=== PATIENT | male | born 1930 | race Caucasian/White ===

== ENCOUNTER 2017-06-01 19:42 | Inpatient (IN) | payer OTHER ==
[~2017-06-01] VITALS: Ht 182.9 cm; Wt 77.6 kg
[2017-06-01 19:47] VITALS: BP 132/75
[2017-06-01] MEDS ORDERED: ELIQUIS2.5 MG PO (20:05)
[2017-06-01] MEDS ORDERED: TOPROL XL25 MG PO (20:06)
[2017-06-01] MEDS ORDERED: LISINOPRIL20 MG PO (20:06)
[2017-06-01] MEDS ORDERED: ZANTAC 150MG T150 M1 PO (20:07)
[2017-06-01] MEDS ORDERED: PROSCAR 5MG TABL5 MG PO (20:07)
[2017-06-01] MEDS ORDERED: ATORVASTATIN CA40 MG PO (20:07)
[2017-06-01] MEDS ORDERED: HYDROCHLOROTH12.5 M1 PO (20:07)
[2017-06-01] MEDS ORDERED: OCUVITE ADULT1 EAC1 PO (20:08)
[2017-06-01] MEDS ORDERED: VITAMIN D3400 UNIT PO (20:09)
[2017-06-01] MEDS ORDERED: UNICOMPLEX M TA1 TA1 PO (20:09)
[2017-06-01] MEDS ORDERED: KLOR-CON 1010 MEQ PO (20:09)
[2017-06-01] MEDS ORDERED: NEURONTIN 300300 M1 (20:10)
[2017-06-01] MEDS ORDERED: MIRALAX17 GM PO (20:10)
[2017-06-01 20:37] LABS: HEMATOCRIT 40.2 % (42.0-52.0); HEMOGLOBIN 13.3 gm/dL (14.0-18.0); MCH 30.6 pg (26.0-34.0); MCV 92.8 fL (80.0-100.0); MPV 7.1 fl. (7.2-11.1); NUCLEATED RBCS 0 /100WBC; PLATELET COUNT* 274 thou/uL (150-400); RBC 4.33 mil/uL (4.50-6.00); RDW-CV 14.5 % (10.5-14.5); WBC 6.9 thou/uL (4.0-11.0)
[2017-06-01 20:46] LABS: CALCIUM 8.4 mg/dL (8.5-10.1); CREATININE 1.6 mg/dL (0.6-1.3); POTASSIUM 3.7 mmol/L (3.5-5.1)
[2017-06-01 20:48] LABS: APTT 28.7 Seconds (25.0-31.3); INR 1.2; PROTIME 11.8 Seconds (9.20-11.50)
[2017-06-01 21:05] LABS: ABSOLUTE LYMPHOCYTES 0.9 thou/uL (0.8-5.3); ABSOLUTE MONOCYTES 0.4 thou/uL (0.0-1.2); ABSOLUTE NEUTROPHILS 5.6 thou/uL (1.6-8.1); ALBUMIN 3.1 g/dL (3.4-5.0); PLATELET ESTIMATE ADEQUATE; TOTAL BILIRUBIN 0.8 mg/dL (<0.1-1.0); TOTAL PROTEIN 6.2 g/dL (6.4-8.2); TROPONIN-I LEVEL 0.07 ng/mL (<0.06)
[2017-06-01 22:09] LABS: BE 2.6 mmol/L (-2 to +3); HCO3 27.2 mmol/L (22.0-26.0); PCO2 41.9 mmHg (35.0-45.0)
[2017-06-01 22:12] LABS: PO2 56.7 mmHg (75.0-100.0)
[2017-06-01 23:00] VITALS: BP 112/67
[2017-06-01 23:33] VITALS: BP 113/61
[2017-06-02 03:59] VITALS: BP 87/56
--- NOTE | 2017-06-02 04:45 | NUR ---
PT WAS ADMITTED TO ROOM 206 DURING THIS SHIFT; VSS, A+OX4, AMBULATED TO BED USING HIS OWN WALKER; DID NOT REPORT ANY DIZZINESS. HE IS ABLE TO COMMUNICATE HIS NEEDS TO STAFF EFFECTIEVLY. HE HAS DENIED THE NEED FOR PAIN MEDICATION UP TO THIS TIME. CARDIOLOGY CONSULT ORDERED.
[2017-06-02 07:00] VITALS: BP 87/59
--- NOTE | 2017-06-02 08:00 | NUR ---
VSS, ASSUMED CARE IN THE AM, ASSESSMENT PERFORMED AND CHARTED, FALL PRECAUTIONS IN PLACE AND CALL LIGHT IN REACH, PT IS A&O4 AND UP WITH ONE TO BSC. PT IS ON 3L NC HE IS WEAK AND HIS GOAL IS TO IMPROVE BREATHING AND SIT UP IN CHAIR, PT IS TRACING AFIB ON THE MONITOR WITH RATE IN THE 90-120 WHEN GETTIN U, PT BPS ANR SOFT, AT THIS TIME I AM HOLDING BETA EVARISTO, WILL FOLLOW WITH PLAN OF CARE,
[2017-06-02 12:04] VITALS: BP 80/53
[2017-06-02 16:16] VITALS: BP 90/58
--- NOTE | 2017-06-02 18:05 | NUR ---
VSS, PT IS NOT PROGRESSING TOWARS GOAL, PT IS ON 3L NC AND UP TO BSC WITH ONE, IS INCONT AND IS TRACING AFIB ON THE MONITOR, PT BP'S ARE SOFT BUT DR HAS NO ORDERS, AND PT DENIES ANY COMPLAINTS, HOURLY ROUNDS COMPLETED,
[2017-06-02 20:48] VITALS: BP 97/60
[2017-06-03] VITALS: BP 104/48
[2017-06-03 04:00] VITALS: BP 116/67
[2017-06-03 04:58] LABS: HEMATOCRIT 41.3 % (42.0-52.0); HEMOGLOBIN 13.3 gm/dL (14.0-18.0); MCH 30.3 pg (26.0-34.0); MCHC 32.1 g/dL (28.0-37.0); MCV 94.3 fL (80.0-100.0); MPV 7.9 fl. (7.2-11.1); RBC 4.38 mil/uL (4.50-6.00); RDW-CV 14.4 % (10.5-14.5); WBC 7.8 thou/uL (4.0-11.0)
[2017-06-03 05:23] LABS: CALCIUM 8.4 mg/dL (8.5-10.1); CREATININE 1.6 mg/dL (0.6-1.3); POTASSIUM 4.8 mmol/L (3.5-5.1)
--- NOTE | 2017-06-03 07:50 | NUR ---
PT IS ABLE TO COMMUNICATE NEEDS TO STAFF EFFECTIVELY. HE HAS DENIED THE NEED FOR PAIN MEDICATION UP TO THIS TIME. HE IS TENTATIVELY SCHEDULED TO HAVE AN ULTRASOUND OF HIS CAROTIDS AND LOWER EXTRMETIES LATER TODAY.
[2017-06-03 08:00] VITALS: BP 100/56
--- NOTE | 2017-06-03 09:19 | CON ---
[address] [address] CONSULTATION Name: LUCIA COOK Room: [address] ADM IN .R.#: [id number] Admission: 06/01/17 Attend Phys: Shannen Rey Discharge: Date of : 30 Report #: [id number] THIS REPORT FOR: //name// CC: [facility] physician/PCP Calixto Tierney DATE OF SERVICE: 06/02/2017 HISTORY OF PRESENT ILLNESS: The patient is an 86-year-old single white male who I was asked to see in the hospital today complaining of being weak. Unfortunately, no old records are available. The patient primarily receives his care at [facility]. He has a long history of atrial fibrillation. He apparently has never been cardioverted. He has been followed by Dr. Kulkarni. He has had no history of bleeding problems. Recently, the patient complained of no appetite and fatigue. He has been lightheaded. Yesterday, he complained of some shortness of breath and edema. His daughter brought him to the hospital and he was admitted. He denies significant fever or cough. He denies history of myocardial infarction or chest pain. He denies any significant palpitations. He has had no vomiting or recurrent loose stools. PAST MEDICAL HISTORY: Otherwise significant for nose surgery, knee surgery, appendectomy, hypertension, hyperlipidemia, atrial fibrillation. MEDICATIONS: Consist of Eliquis, metoprolol, lisinopril/hydrochlorothiazide, Lipitor, potassium. ALLERGIES: He has no known drug allergies. FAMILY HISTORY: Negative for heart disease. SOCIAL HISTORY: He is , lives with a daughter in [place]. No smoking or alcohol abuse. REVIEW OF SYSTEMS: He has had no history of stroke, asthma, peptic ulcer disease, liver disease, kidney disease, cancer, chronic skin condition. PHYSICAL EXAMINATION: GENERAL: Revealed an elderly male sitting in a chair. He appeared in no acute distress. VITAL SIGNS: He had a blood pressure of 100/60, his pulse was 90. He was afebrile. HEENT: He was anicteric. Conjunctivae are pale. Mucous membranes appear dry. NECK: Veins nondistended. CHEST: Clear to auscultation. CARDIAC: Irregular rhythm, grade 3 holosystolic murmur at the apex. ABDOMEN: Soft, [place] [address] CONSULTATION Name: LUCIA COOK Room: [address]#: [id number] Admission: 06/01/17 Attend Phys: Shannen Rey Discharge: Date of : 30 Report #: [id number] EXTREMITIES: Had trace pedal edema. Dorsalis pedis pulse cannot be palpated. SKIN: Cool and dry. NEUROLOGIC: Nonfocal. LYMPH: No adenopathy. MUSCULOSKELETAL: No joint effusion. LABORATORY DATA: His ECG showed atrial fibrillation with a left bundle branch block. His workup in the Emergency Room yesterday, he had a CT scan of the head performed without contrast last night that showed no acute abnormality. His chest x-ray in the Emergency Room showed cardiomegaly, mild interstitial infiltrates, elevated left hemidiaphragm. His lab work, sodium 139, BUN 29, creatinine 1.6, glucose 171, alkaline phosphatase is 121. BNP 4171. TSH 1.7. White blood cell count 6.9, hemoglobin 13.3. IMPRESSION AND RECOMMENDATIONS: 1. Atrial fibrillation. Rate controlled with a beta maximiliano. I would continue anticoagulation with Eliquis. 2. Fatigue. Reason unclear. 3. Complaint of shortness of breath. Noted to have murmur and mitral regurgitation. Recommend echocardiogram. 4. Edema. Suspect venous insufficiency. 5. Hypertension. Blood pressure noted to be low. <ELECTRONICALLY SIGNED> By: Sarath Cavanaugh MD, [facility] 06/03/17 0919 [id number] [id number] Cavanaugh MD, FACC /nt
[2017-06-03 11:47] VITALS: BP 95/56
--- NOTE | 2017-06-03 13:04 | EKG ---
[place] [address] ELECTROCARDIOGRAM REPORT Name: LUCIA COOK Room: [address] ADM IN M.R.#: [id number] Admission: 06/01/17 Attend Phys: Shannen Rey Discharge: Date of : 30 Report #: [id number] THIS REPORT FOR: //name// [facility] ED Test Date: 2017-06-01 Test Time: 20:20:42 Pat Name: LUCIA COOK Department: Room: [facility] Gender: M Bank Compliance Officer: CHACHA Pace : 1930 Requested By: Alina Escalante Order Number: [id number] MD: Jay Urbina Measurements Intervals [place] Rate: 84 P: UT: QRS: -44 QRSD: 146 T: 120 QT: 450 QTc: 533 Interpretive Statements Atrial fibrillation Nonspecific 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
--- NOTE | 2017-06-03 14:43 | NUR ---
ASSUMED CARE OF PT AT 0730. PT SITTING UP AT THE EDGE OF BED WAITING FOR BREAKFAST. PT A&0X4. DENIES ANY PAIN OR SHORTNESS OF BREATH. PT TRACING AFIB WITH BBB ON THE CASE RESOURCE MANAGER. EDEMA NOTED TO BILATERAL LE'S. PT ON 2L NC SAT 92%. PT UP WITH 1 ASSIST WITH WALKER FROM HOME TO [facility]. PT TO HAVE BILATERAL LE US, ECHO AND US CAROTIDS TODAY. AM ASSESSMENT CHARTED. MEDICATIONS PER JUL. PT REPOSITIONS SELF IN BED WITH REMINDERS. HOURLY ROUNDING OBSERVED. BED IN LOW POSITION. CALL LIGHT WITHIN REACH. WILL CONTINUE PLAN OF CARE.
[2017-06-03 16:23] VITALS: BP 96/60
--- NOTE | 2017-06-03 17:14 | 2DMMODE ---
[place] [address] 2 D/M-MODE ECHOCARDIOGRAM Name: LUCIA COOK Room: [address] ADM IN [facility]#: [id number] Admission: 06/01/17 Attend Phys: Calixto Tierney Discharge: Date of : 30 Date of Service: 06/03/17 1714 Report #: [id number] THIS REPORT FOR: //name// APPROVED REPORT Study performed: 06/03/2017 13:32:26 EXAM: Comprehensive 2D, Doppler, and color-flow Echocardiogram Patient Location: In-Patient Room #: 206 Status: routine BSA: 1.99 HR: 74 bpm BP: 116/67 mmHg Rhythm: Atrial Fibrillation Other Information Study Quality: Good Indications Atrial Fibrillation Dyspnea Elevated Troponin 2D Dimensions LVEF(%): 48.97 (>50%) IVSd: 18.91 (7-11mm) LVOT Diam: 21.38 (18-24mm) LVDd: 43.44 mm PWd: 13.18 (7-11mm) Ascending Ao: 40.93 (22-36mm) LVDs: 32.78 (25-40mm) Aortic Root: 37.48 mm Keen's LVEF: 48.97 % Volumes Left Atrial Volume (Systole) LA ESV Index: 31.20 mL/m2 Aortic Valve AoV Peak Jax.: 2.34 m/s AO Peak Gr.: 21.83 mmHg LVOT Max P.71 mmHg AO Mean Gr.: 13.10 mmHg LVOT Mean P.89 mmHg LVOT Max V: 0.65 m/s AO V2 VTI: 42.34 cm LVOT Mean V: 0.44 m/s FIORELLA (VTI): 1.01 cm2 LVOT V1 VTI: 11.91 [place] [address] 2 D/M-MODE ECHOCARDIOGRAM Name: JOYCELUCIA Room: [address] IN .R.#: [id number] Admission: 06/01/17 Attend Phys: Calixto Tierney Discharge: Date of : 30 Date of Service: 06/03/17 1714 Report #: [id number] Mitral Valve MV Decel. Time: 129.34 ms MV PHT: 37.51 ms MVA (PHT): 5.87 cm2 TDI Medial E' Jax.: 0.07 m/s Lateral E' Jax.: 0.08 m/s Pulmonary Valve PV Peak Jax.: 0.95 m/s PV Peak Gr.: 3.64 mmHg Tricuspid Valve TR Peak Gr.: 38.25 mmHg RVSP: 43.00 mmHg Left Ventricle The left ventricle is normal size. There is normal LV segmental wall motion. Severe concentric left ventricular hypertrophy. Left ventricular systolic function is normal. The left ventricular ejection fraction is within the normal range. LVEF is 60-65%. Severe diastolic dysfunction is present (restrictive filling). Right Ventricle The right ventricle is normal size. The right ventricular systolic function is normal. Atria Left atrium is dilated. The right atrium size is normal. Aortic Valve Moderate aortic valve sclerosis. Aortic valve is not well visualized. No aortic regurgitation is present. Moderate aortic stenosis. Mitral Valve There is mitral annular calcification. Mild mitral regurgitation. No evidence of mitral valve stenosis. Tricuspid Valve The tricuspid valve is normal in structure. Mild tricuspid regurgitation. The RVSP is 40-45 mmHg. Pulmonic Valve The pulmonary valve is normal in structure. There is no pulmonic valvular regurgitation[place] [address] 2 D/M-MODE ECHOCARDIOGRAM Name: LUCIA COOK Room: [address] IN [facility]#: [id number] Admission: 06/01/17 Attend Phys: Calixto Tierney Discharge: Date of : 30 Date of Service: 06/03/17 1714 Report #: [id number] The aortic root is normal in size. IVC is normal in size and collapses with >50% inspiration Pericardium There is no pericardial effusion. <Conclusion> Severe concentric left ventricular hypertrophy. There is normal LV segmental wall motion. LVEF is 60-65%. Moderate aortic stenosis. No aortic regurgitation is present. Mild mitral regurgitation. There is mitral annular calcification. No evidence of mitral valve stenosis. Severe diastolic dysfunction is present (restrictive filling). <ELECTRONICALLY SIGNED> By: Jay Urbina MD, FACC 06/03/17 1714 13 13 Jay Urbina MD, FACC /INF
--- NOTE | 2017-06-03 17:47 | NUR ---
NO ACUTE CHANGES THROUGHOUT SHIFT. REFER TO CHARTING. PT HAD BILATERAL LE US, US CAROTIDS AND ECHO TODAY. REFER TO RESULTS. DR VIERA HERE TO SEE PT. ORDERS RECEIVED TO HOLD HTN MEDS TO ALLOW DIURESIS. PT CONTINUES TO TRACE AFIB WITH BBB ON THE DOPE DRY HOUSE OPERATOR. ON 2L NC SAT UPPER 90'S. PT DENIES ANY PAIN OR SHORTNESS OF BREATH THROUGHOUT SHIFT. FAMILY AT BEDSIDE THROUGHOUT SHIFT. PT VOIDS PER URINAL. PT UP WITH 1 ASSIST AND WALKER FROM HOME. MEDICATIONS PER JUL. PT REPOSITIONS SELF IN BED WITH REMINDERS. HOURLY ROUNDING OBSERVED. BED IN LOW POSITION. CALL LIGHT WITHIN REACH. WILL CONTINUE PLAN OF CARE.
[2017-06-03 19:30] VITALS: BP 92/63
[2017-06-04] VITALS: BP 103/54
--- NOTE | 2017-06-04 00:15 | NUR ---
ASSUMED CARE OF PT AT 1900. PT IS ALERT AND ORIENTED. VSS. PERRLA. NO COMPLAINTS OF PAIN. PT IS IN A FIB ON THE TELEMETRY. PT IS ON ROOM AIR. PT IS SLEEPING COMFORTABLY IN BED. RESPIRATIONS ARE EVEN AND NONLABORED. WILL CONTINUE TO MONITOR PT.
[2017-06-04 04:07] VITALS: BP 108/66
[2017-06-04 08:00] VITALS: BP 94/59
[2017-06-04 08:41] VITALS: BP 94/59
--- NOTE | 2017-06-04 13:12 | NUR ---
PT DC HOME WITH DAUGHTER. IV AND SCIENTIFIC INFORMATICS LEADER REMOVED PRIOR TO DC. PT AND DAUGHTER VERBALIZED UNDERSATANDING OF DC INSTRUCTIONS. PT TOOK ALL PERSONAL BELONGINGS AT DISCHARGE. PT VSS, SKIN INTACT AND NO C/O PAIN OR DISTRESS AT DISCHARGE.
== END 2017-06-04 11:15 | disposition home or self-care (01) | DRG 291 ==
LOC: M.ERS 19:42 → M.TBA-ER 22:31 → M.2W 22:31
PROVIDERS: Internal Medicine; Personal Emergency Response Attendant; ADMIT Internal Medicine
DX: I50.33 Acute on chronic diastolic (congestive) heart failure (principal); J96.01 Acute respiratory failure with hypoxia; J18.9 Pneumonia, unspecified organism; I13.0 Hypertensive heart and chronic kidney disease with heart failure and stage 1 through stage 4 chronic kidney disease, or unspecified chronic kidney disease; J44.0 Chronic obstructive pulmonary disease with (acute) lower respiratory infection; I65.29 Occlusion and stenosis of unspecified carotid artery; M19.90 Unspecified osteoarthritis, unspecified site; I48.91 Unspecified atrial fibrillation; E78.5 Hyperlipidemia, unspecified; N18.3 Chronic kidney disease, stage 3 (moderate); I35.0 Nonrheumatic aortic (valve) stenosis; Z79.899 Other long term (current) drug therapy; Z90.49 Acquired absence of other specified parts of digestive tract